=== PATIENT | female | born 1975 | race Caucasian/White ===

== ENCOUNTER → 2017-12-28 12:52 | Outpatient (CLI) | payer OTHER ==
[~2017-12-28 12:52] MED LIST: PERCOCET 5/3251 TAB PO
== END | disposition home or self-care (01) ==
LOC: RAD 12:52
DX: M99.01 Segmental and somatic dysfunction of cervical region (principal); M99.02 Segmental and somatic dysfunction of thoracic region; M99.03 Segmental and somatic dysfunction of lumbar region; M99.04 Segmental and somatic dysfunction of sacral region

== ENCOUNTER 2018-03-22 13:05 | Emergency (ER) | payer OTHER ==
[~2018-03-22] VITALS: Ht 165.1 cm; Wt 55.3 kg
[2018-03-22] MEDS ORDERED: ORPHENADRINE C100 MG PO (13:58)
[2018-03-22] MEDS ORDERED: MEDROLPACK PO (13:58)
[2018-03-22] MEDS ORDERED: KETO10TA2 PO (13:58)
== END 2018-03-22 14:15 | disposition home or self-care (01) ==
LOC: ER 13:05
DX: M54.89 Other dorsalgia (principal)

== ENCOUNTER → 2018-03-25 | Outpatient (CLI) | payer OTHER ==
[~2018-03-25] MED LIST changes: +KETO10TA2 PO; +MEDROLPACK PO; +ORPHENADRINE C100 MG PO
== END | disposition home or self-care (01) ==
LOC: MRI 03-24 10:20
DX: M54.9 Dorsalgia, unspecified (principal)
CPT/HCPCS: 72148

== ENCOUNTER 2019-06-15 14:30 | Outpatient (CLI) | payer OTHER | END 2019-06-15 14:46 | disposition home or self-care (01) | LOC: MAMO-SONO 14:30 | DX: Z12.31 Encounter for screening mammogram for malignant neoplasm of breast (principal) ==

== ENCOUNTER 2019-12-04 08:54 | Outpatient (CLI) | payer OTHER | END 2019-12-04 08:59 | disposition home or self-care (01) | LOC: MAMO-SONO 08:54 | DX: Z12.31 Encounter for screening mammogram for malignant neoplasm of breast (principal) ==

== ENCOUNTER 2021-06-27 11:01 | Outpatient (CLI) | payer OTHER | END 2021-06-27 11:02 | disposition home or self-care (01) | LOC: MAMO-SONO 11:01 | PROVIDERS: ATTEND Plastic Surgery Surgery of the Hand | DX: N62 Hypertrophy of breast (principal); Z12.31 Encounter for screening mammogram for malignant neoplasm of breast ==

== ENCOUNTER 2025-05-18 11:16 | Outpatient (CLI) | payer OTHER | END 2025-05-18 11:29 | disposition home or self-care (01) | LOC: MAMO-SONO 11:16 | DX: N64.4 Mastodynia (principal) ==

== ENCOUNTER 2025-06-17 10:28 | Outpatient (CLI) | payer OTHER | END 2025-06-17 10:35 | disposition home or self-care (01) | LOC: SONOGRAMA 10:28 | DX: R10.2 Pelvic and perineal pain (principal) ==